=== PATIENT | male | born 1990 | race Caucasian/White ===

== ENCOUNTER 2024-09-21 14:35 | Emergency (ER) | payer BC ==
[2024-09-21 15:01] LABS: BASOPHILS ABSOLUTE AUTO 0.1 K/mm3 (0.0-0.2); BASOPHILS PERCENT AUTO 0.8 % (0.0-1.0); EOSINOPHILS ABSOLUTE AUTO 0.1 K/mm3 (0.0-0.4); EOSINOPHILS PERCENT AUTO 1.8 % (0.0-6.0); HEMATOCRIT 42.5 % (42.0-52.0); HEMOGLOBIN 15.2 gm/dl (14.0-18.0); IMMATURE GRAN ABSOLUTE AUTO 0.03 K/mm3 (0.00-0.05); IMMATURE GRAN PERCENT AUTO 0.4 % (0.0-0.4); LYMPHOCYTES ABSOLUTE AUTO 1.4 K/mm3 (1.0-4.8); LYMPHOCYTES PERCENT AUTO 19.6 % (24.0-44.0); MEAN CORPUSCULAR HEMOGLOBIN 34.4 pg (28.0-32.0); MEAN CORPUSCULAR HGB CONC 35.8 g/dl (32.0-36.0); MEAN CORPUSCULAR VOLUME 96.2 fl (83.0-99.0); MEAN PLATELET VOLUME 9.3 fl (9.4-12.4); MONOCYTES ABSOLUTE AUTO 0.8 K/mm3 (0.0-0.8); MONOCYTES PERCENT AUTO 10.9 % (0.0-8.0); NEUTROPHILS ABSOLUTE AUTO 4.8 K/mm3 (1.8-7.7); NEUTROPHILS PERCENT AUTO 66.5 % (41.0-71.0); PLATELET COUNT,PLT 266 K/mm3 (150-400); RED BLOOD CELL COUNT 4.42 M/mm3 (4.52-5.90); WHITE BLOOD CELL COUNT,WBC 7.26 K/mm3 (3.9-11.3)
[2024-09-21] MEDS: LORazepam 2 MG/ML SDV IVPUSH ONE (15:05)
[2024-09-21] MEDS: Sodium Chloride 0.9% 1,000 ML IV ONE ×2 (15:10→18:00)
[2024-09-21 15:27] LABS: A/G RATIO 1.2 (1-2); ALANINE AMINOTRANSFERASE,ALT 51 U/L (16-63); ALBUMIN 4.1 g/dl (3.4-5.0); ALKALINE PHOSPHATASE 97 U/L (46-116); ANION GAP 18.3 (5-15); ASPARTATE AMNIOTRANSFERASE,AST 38 U/L (15-37); BILIRUBIN TOTAL 0.3 mg/dL (0.2-1.0); BLOOD UREA NITROGEN,BUN 13 mg/dL (7-18); BUN/CREATININE RATIO 10.8 (14-18); CALCIUM 9.4 mg/dL (8.5-10.1); CARBON DIOXIDE,CO2 22 mEq/L (21-32); CHLORIDE,CL 100 mEq/L (98-107); CREATININE 1.2 mg/dL (0.7-1.3); ESTIMATED GFR 82 mL/min (>60); GLUCOSE RANDOM 164 mg/dL (70-99); MAGNESIUM 1.3 mg/dL (1.8-2.4); POTASSIUM,K 3.3 mEq/L (3.5-5.1); PROTEIN TOTAL,TP 7.5 g/dl (6.4-8.2); SODIUM,NA 137 mEq/L (136-145)
[2024-09-21] MEDS: Magnesium Sulfate 2 GM/50 mL 2 GM/50 ML BAG IV ONE (17:01)
[2024-09-21] MEDS: Potassium Chloride 20 MEQ Tab.ER PO ONE (17:03)
[2024-09-21] MEDS: amLODIPine 5 MG Tab PO ONE (17:56)
== END 2024-09-21 18:45 | disposition home or self-care (01) ==
LOC: JD.ED 14:35
DX: F10.239 Alcohol dependence with withdrawal, unspecified (principal); Z79.899 Other long term (current) drug therapy; Y90.9 Presence of alcohol in blood, level not specified
CPT/HCPCS: 36415; 80053; 80307; 83735; 85025; 93005; 96361; 96365; 96366; 96375; 99284; A9270; J2060; J3475; J7030; 93010

== ENCOUNTER 2024-09-28 11:56 | Emergency (ER) | payer BC ==
[2024-09-28] MEDS: LORazepam 2 MG/ML SDV IVPUSH ONE (12:52)
[2024-09-28] MEDS: Ondansetron 4 MG/2 ML SDV IVPUSH ONE (12:53)
[2024-09-28] MEDS: Sodium Chloride 0.9% 1,000 ML IV STA ×2 (12:53→14:35)
[2024-09-28 13:06] LABS: HEMATOCRIT 45.1 % (42.0-52.0); HEMOGLOBIN 16.1 gm/dl (14.0-18.0); MEAN CORPUSCULAR HGB CONC 35.7 g/dl (32.0-36.0); MEAN CORPUSCULAR VOLUME 95.3 fl (83.0-99.0); MEAN PLATELET VOLUME 9.3 fl (9.4-12.4); PLATELET COUNT,PLT 324 K/mm3 (150-400); RED BLOOD CELL COUNT 4.73 M/mm3 (4.52-5.90)
[2024-09-28] MEDS: HYDROmorphone 1 MG/ML Syringe IVPUSH ONE (13:07)
[2024-09-28 13:45] LABS: BAND PERCENT MAN 0 % (0-10); BASOPHILS PERCENT MAN 1 (0.2-1.2); EOSINOPHILS PERCENT MAN 3 % (0.8-7.0); LYMPHOCYTES % ATYPICAL MANUAL 0 %; LYMPHOCYTES PERCENT MAN 37 % (20-40); MONOCYTES PERCENT MAN 8 % (2-10)
[2024-09-28 13:47] LABS: STOMATOCYTES 1+ SLIGHT
[2024-09-28 13:48] LABS: PLATELET COUNT ESTIMATE ADEQUATE
[2024-09-28 13:53] LABS: A/G RATIO 1.1 (1-2); ALBUMIN 4.2 g/dl (3.4-5.0); ANION GAP 21.9 (5-15); BILIRUBIN TOTAL 0.4 mg/dL (0.2-1.0); CALCIUM 9.7 mg/dL (8.5-10.1); EST CRCL DRUG DOSING (CG) 122.16 mL/min; ETHANOL BLOOD MEDICAL 0.11 gm% (0.00); POTASSIUM,K 3.9 mEq/L (3.5-5.1); PROTEIN TOTAL,TP 7.9 g/dl (6.4-8.2); TSH 4.057 uIU/mL (0.358-3.74)
[2024-09-28 14:31] LABS: BARBITURATE SCREEN,URINE NEGATIVE (CUTOFF=200); BENZODIAZEPINES SCREEN,URINE NEGATIVE (CUTOFF=150); BUPRENORPHINE SCREEN,URINE NEGATIVE (CUTOFF=10); METHADONE SCREEN, URINE NEGATIVE (CUT0FF=200); METHAMPHETAMINES SCREEN, URINE NEGATIVE (CUTOFF=500); OXYCODONE SCREEN,URINE NEGATIVE (CUT0FF=100); THC SCREEN,URINE 20 NG/ML NEGATIVE (CUTOFF=50)
[2024-09-28 14:36] LABS: AMPHETAMINES SCREEN, URINE NEGATIVE (CUTOFF=500)
== END 2024-09-28 16:10 | disposition home or self-care (01) ==
LOC: JD.ED 11:56
DX: F10.230 Alcohol dependence with withdrawal, uncomplicated (principal); I10 Essential (primary) hypertension; F17.210 Nicotine dependence, cigarettes, uncomplicated; Z86.16 Personal history of COVID-19; Z79.899 Other long term (current) drug therapy; Y90.9 Presence of alcohol in blood, level not specified
CPT/HCPCS: 36415; 80053; 80143; 80179; 80306; 80307; 84443; 85007; 85027; 93005; J2060; J2405; J7030; 93010; 96361; 96374; 96375; 99283; 99285-25

== ENCOUNTER 2024-12-30 12:26 | Emergency (ER) | payer BC ==
[2024-12-30 14:30] LABS: MEAN PLATELET VOLUME 9.2 fl (9.4-12.4); NRBC ABSOLUTE 0.00 (0.00-0.02); NRBC PERCENT 0.0 % (0.0-0.2); PLATELET COUNT,PLT 290 K/mm3 (150-400); RED BLOOD CELL COUNT 4.41 M/mm3 (4.52-5.90); WHITE BLOOD CELL COUNT,WBC 9.39 K/mm3 (3.9-11.3)
[2024-12-30 14:40] LABS: BASOPHILS ABSOLUTE AUTO 0.1 K/mm3 (0.0-0.2); BASOPHILS PERCENT AUTO 0.8 % (0.0-1.0); EOSINOPHILS ABSOLUTE AUTO 0.2 K/mm3 (0.0-0.4); EOSINOPHILS PERCENT AUTO 2.4 % (0.0-6.0); IMMATURE GRAN ABSOLUTE AUTO 0.03 K/mm3 (0.00-0.05); IMMATURE GRAN PERCENT AUTO 0.3 % (0.0-0.4); LYMPHOCYTES ABSOLUTE AUTO 3.1 K/mm3 (1.0-4.8); LYMPHOCYTES PERCENT AUTO 33.2 % (24.0-44.0); MONOCYTES ABSOLUTE AUTO 0.7 K/mm3 (0.0-0.8); MONOCYTES PERCENT AUTO 7.7 % (0.0-8.0); NEUTROPHILS ABSOLUTE AUTO 5.2 K/mm3 (1.8-7.7); NEUTROPHILS PERCENT AUTO 55.6 % (41.0-71.0)
[2024-12-30 15:08] LABS: BUPRENORPHINE SCREEN,URINE NEGATIVE (CUTOFF=10); METHADONE SCREEN, URINE NEGATIVE (CUT0FF=200); METHAMPHETAMINES SCREEN, URINE NEGATIVE (CUTOFF=500); OXYCODONE SCREEN,URINE NEGATIVE (CUT0FF=100); THC SCREEN,URINE 20 NG/ML NEGATIVE (CUTOFF=50)
[2024-12-30 15:10] LABS: AMPHETAMINES SCREEN, URINE NEGATIVE (CUTOFF=500)
[2024-12-30 15:14] LABS: A/G RATIO 1.2 (1-2); ALANINE AMINOTRANSFERASE,ALT 35.0 U/L (16-63); ASPARTATE AMNIOTRANSFERASE,AST 28.0 U/L (15-37); BILIRUBIN TOTAL 0.4 mg/dL (0.2-1.0); BLOOD UREA NITROGEN,BUN 7.0 mg/dL (7-18); CARBON DIOXIDE,CO2 25.0 mEq/L (21-32); CHLORIDE,CL 99.0 mEq/L (98-107); CREATININE 0.8 mg/dL (0.7-1.3); EST CRCL DRUG DOSING (CG) 148.43 mL/min; ESTIMATED GFR 120.0 mL/min (>60); ETHANOL BLOOD MEDICAL 0.02 gm% (0.00); GLUCOSE RANDOM 96.0 mg/dL (70-99); POTASSIUM,K 4.1 mEq/L (3.5-5.1); PROTEIN TOTAL,TP 7.8 g/dl (6.4-8.2); SODIUM,NA 137.0 mEq/L (136-145); TSH 1.966 uIU/mL (0.358-3.74)
== END 2024-12-30 18:05 | disposition home or self-care (01) ==
LOC: JD.ED 12:26
DX: F10.10 Alcohol abuse, uncomplicated (principal); I10 Essential (primary) hypertension; F17.210 Nicotine dependence, cigarettes, uncomplicated; Z86.16 Personal history of COVID-19; Y90.1 Blood alcohol level of 20-39 mg/100 ml; Z79.899 Other long term (current) drug therapy
CPT/HCPCS: 36415; 80053; 80143; 80179; 80306; 80307; 84443; 85025; 93005; 99283